=== PATIENT | female | born 1960 | race Caucasian/White ===

== ENCOUNTER 2017-05-19 01:40 | Emergency (ER) | payer MEDICAID ==
[~2017-05-19] VITALS: Ht 142.2 cm; Wt 59.0 kg
[~2017-05-19 01:40] MED LIST: ALB2T; LEVA0.31; MONT4GRA; TIOTCAP
[2017-05-19 01:54] VITALS: BP 144/105
== END 2017-05-19 04:36 | disposition left against medical advice (07) ==
LOC: ER 01:40
DX: F31.9 Bipolar disorder, unspecified (principal); Z53.21 Procedure and treatment not carried out due to patient leaving prior to being seen by health care provider

== ENCOUNTER 2017-05-23 03:46 | Emergency (ER) | payer MEDICAID ==
[~2017-05-23] VITALS: Ht 142.2 cm; Wt 56.7 kg
[2017-05-23 05:12] LABS: Urine Bilirubin Negative (Negative); Urine Blood 2+ /uL (Negative); Urine Color Yellow (Yellow); Urine Glucose Normal (Normal); Urine Ketone Negative (Negative); Urine Nitrite Negative (Negative); Urine RBC 24 /hpf (0 - 4); Urine Squamous Epithelial Cell FEW /hpf (<5); Urine Urobilinogen Normal (Negative); Urine pH 6.5 (5.0-8.0)
[2017-05-23] MEDS ORDERED: LORazepam 0.5 MG TAB ONE (05:37)
[2017-05-23 06:24] VITALS: BP 112/82
== END 2017-05-23 06:24 | disposition home or self-care (01) ==
LOC: ER 03:49
DX: F41.9 Anxiety disorder, unspecified (principal); F31.9 Bipolar disorder, unspecified; G47.00 Insomnia, unspecified; F17.210 Nicotine dependence, cigarettes, uncomplicated; M19.90 Unspecified osteoarthritis, unspecified site; J44.9 Chronic obstructive pulmonary disease, unspecified; Z90.49 Acquired absence of other specified parts of digestive tract; Z90.710 Acquired absence of both cervix and uterus
CPT/HCPCS: 80307; 81001

== ENCOUNTER 2017-06-07 05:49 | Emergency (ER) | payer MEDICAID ==
[~2017-06-07] VITALS: Ht 152.4 cm; Wt 72.6 kg
[2017-06-07 08:07] VITALS: BP 149/85
[2017-06-07] MEDS ORDERED: KETOROLAC TROMETH 60MG/2ML VIAL IM ONE (08:15)
[2017-06-07] MEDS ORDERED: diphenhdrAMINE HCL 50 MG/1 ML VL IM ONE (08:15)
== END 2017-06-07 08:30 | disposition home or self-care (01) ==
LOC: ER 05:52
DX: S16.1XXA Strain of muscle, fascia and tendon at neck level, initial encounter (principal); S40.012A Contusion of left shoulder, initial encounter; S50.12XA Contusion of left forearm, initial encounter; M19.90 Unspecified osteoarthritis, unspecified site; J44.9 Chronic obstructive pulmonary disease, unspecified; F17.210 Nicotine dependence, cigarettes, uncomplicated; Z90.49 Acquired absence of other specified parts of digestive tract; Z90.710 Acquired absence of both cervix and uterus; Z88.1 Allergy status to other antibiotic agents; Z88.8 Allergy status to other drugs, medicaments and biological substances; V03.99XA Pedestrian with other conveyance injured in collision with car, pick-up truck or van, unspecified whether traffic or nontraffic accident, initial encounter; Y93.89 Activity, other specified; Y92.89 Other specified places as the place of occurrence of the external cause; Y99.8 Other external cause status
CPT/HCPCS: 72040; 73030; 73060; 73090; 96372; 99284; J1200; J1885

== ENCOUNTER 2024-08-14 08:39 | Emergency (ER) | payer MEDICAID ==
[~2024-08-14] VITALS: Ht 137.2 cm; Wt 59.0 kg
[~2024-08-14 08:39] MED LIST changes: -ALB2T; +ALBU2TAB47; -MONT4GRA; +MONT4GRA7
[2024-08-14] MEDS: ACETAMINOPHEN 500 MG TAB or CAP PO ONE (09:15)
[2024-08-14 09:16] VITALS: BP 108/68; PULSE 94; TEMP 98
--- NOTE | 2024-08-14 09:20 | ED.PDOC ---
Steven. trauma (HPI) HPI Comments A 64 YEAR OLD FEMALE PRESENTS TO THE ED WITH COMPLAINT OF HEADACHE AND NECK PAIN STATUS POST FALL. PATIENT STATES SHE ACCIDENTALLY SLIPPED ON BLACK ICE 3 DAYS AGO CAUSING HER TO FALL BACKWARDS AND HIT THE BACK OF HER HEAD ON THE GROUND. PATIENT REPORTS SHE IS NOW EXPERIENCING A HEADACHE, NECK PAIN, AND UPPER BACK PAIN. PATIENT NOTES SHE ALSO HAS A HISTORY OF COPD AND USUALLY DOES A BREATHING TREATMENT IN THE MORNING, BUT DID NOT DO IT TODAY, AND WOULD LIKE A BREATHING TREATMENT HERE IN THE ED TODAY SHE CURRENTLY HAS MILD DIFFICULTY BREATHING. PATIENT DENIES LOC, FEVER, CHILLS, SHORTNESS OF BREATH, CHEST PAIN, ABDOMINAL PAIN, NAUSEA, VOMITING, HEADACHE, OR OTHER COMPLAINTS. NO OTHER SYMPTOMS OR MODIFYING FACTORS AT THIS TIME. PATIENT IS ALERT, ORIENTED X 4, AND HAS STEADY GAIT. Chief Complaint: Fall Injury Time Seen by MD: 08:49 Primary Care Provider: TARUNK Reviewed notes: Nurses Notes, Medications, Allergies Allergies: Coded Allergies: Haloperidol (Verified Allergy, Mild, 12/28/09) Erythromycin (Verified Allergy, Unknown, 07/09/16) Risperidone (Verified Allergy, Unknown, 07/09/16) Home Meds Active Scripts Albuterol Sulfate (Albuterol Sulfate Hfa) 108 Mcg/Act Aer, 108 MCG IN TID, #120 AER Prov:RUBINA KEEN 08/14/24 Methocarbamol (Methocarbamol) 500 Mg Tab, 500 MG PO BID, #20 TAB Prov:RUBINA KEEN 08/14/24 Methylprednisolone (Medrol Dosepak) 4 Mg Jay, 4 MG PO UD, #21 TAB UAD Prov:RUBINA KEEN 08/14/24 Reported Medications Levalbuterol Hydrochloride (Xopenex) 0.31 Mg Neb 01/01/10 Albuterol Sulfate (Ventolin) 2 Mg Tb 01/01/10 Tiotropium [place] Monohydrate (Spiriva Handihaler) Handihlr Cap, 1 daily 12/28/09 Montelukast Sodium (Singulair) 4 Mg Gra 12/28/09 Information Source: Patient Mode of Arrival: Ambulatory Severity: Moderate Timing: Days Duration: Since onset, Days Prehospital treatment: None Location: Back (UPPER BACK), Head, Neck Location of neck pain: (R) Posterior, (L) Posterior Location of laceration: None Mechanism: Blunt trauma, Fall Associated signs and symtoms: Headache Past Medical History PAST MEDICAL HISTORY: Anxiety, Arthritis, COPD, Depression, Gallstones Past Medical History (Other): CHRONIC LOWER BACK PAIN Surgical History: Appendectomy, , Hysterectomy, Tonsillectomy APPLICATIONS PROGRAMMER ANALYST History: Denies all APPLICATIONS PROGRAMMER ANALYST Hx Family History Family History: Reviewed,noncontributory to illness, No family hx of HTN Social History Smoker: Cigarettes, Less Than 1 Pack/Day Alcohol: Occasionally Drugs: Denies Drug Use Lives In: Home Constitutional: denies: chills, diaphoresis, fatigue, fever, malaise, sweats, weakness, others EENTM: denies: blurred vision, double vision, ear bleeding, ear discharge, ear drainage, ear pain, ear ringing, eye pain, eye redness, hearing loss, mouth pain, mouth swelling, nasal discharge, nose bleeding, nose congestion, nose pain, photophobia, tearing, throat pain, throat swelling, voice changes, others Respiratory: reports: wheezing, others (DIFFICULTY BREATHING); denies: cough, hemoptysis, orthopnea, SOB at rest, shortness of breath, SOB with excertion, stridor Cardiovascular: denies: chest pain, dizzy spells, diaphoresis, Dyspnea on exertion, edema, irregular heart beat, left arm pain, lightheadedness, palpitations, PND, syncope, others Gastrointestinal: denies: abdomen distended, abdominal pain, blood streaked bowels, constipated, diarrhea, dysphagia, difficulty swallowing, hematemesis, melena, nausea, poor appetite, poor fluid intake, rectal bleeding, rectal pain, vomiting, others Genitourinary: denies: abnormal vagina bleeding, burning, dyspareunia, dysuria, flank pain, frequency, hematuria, incontinence, pain, , vagina discharge, urgency, others Neurological: reports: headache; denies: dizziness, fainting, left sided numbness, left sided weakness, numbness, paresthesia, pre-existing deficit, right sided numbness, right sided weakness, seizure, speech problems, tingling, tremors, weakness, others Musculoskeletal: reports: back pain (UPPER BACK PAIN), muscle pain, neck pain; denies: gout, joint pain, joint swelling, muscle stiffness, others Integumetry: denies: bruises, change in color, change in hair/nails, dryness, laceration, lesions, lumps, rash, wounds, others Allergic/Immunocompromised: denies: Difficulty Healing, Frequent Infections, Hives, Itching, others Hematologic/Lymphatic: denies: anemia, blood clots, easy bleeding, easy bruising, swollen glands, others Endocrine: denies: excessive hunger, excessive sweating, excessive thirst, excessive urination, flushing, intolerance to cold, intolerance to heat, unexplained weight gain, unexplained weight loss, others Psychiatric: denies: anxiety, bipolar disorder, depression, hopeless, panic disorder, schizophrenia, sleepless, suicidal, others All Other Systems: Reviewed and Negative Physical Exam General Appearance: No Apparent Distress, Normal HEENT: Head (TENDERNESS BACK OF SCALP, NO BONY TENDERNESS, SWELLING AND DEFORMITY. ), Normal ENT Inspection, PERRL/EOMI, Pharynx Normal, TMs Normal Neck: Full Range of Motion, Normal Inspection, Supple, Tender Lateral (MUSCLE SPASM ON POSTERIOR NECK, NO BONY TENDERNESS, SWELLING AND DEFORMITY. ) Respiratory: Chest Non-Tender, Expiration, No Accessory Muscle Use, No Respiratory Distress, Rhonchi, Wheezing (MILD ) Cardiovascular: No Edema, No JVD, No Murmur, No Gallop, Normal Peripheral Pulses, Regular Rate/Rhythm Breast Exam: Deferred Gastrointestinal: No Organomegaly, Non Tender, No Pulsatile Mass, Normal Bowel Sounds, Soft Genitalia: Deferred Pelvic: Deferred Rectal: Deferred Extremities: No calf tenderness, Normal capillary refill, Normal inspection, Normal range of motion, Non-tender, No pedal edema Musculoskeletal : Location: Bilateral Extremity Location: Back Apperance: Tenderness (MUSCLE SPASM ON UPPER BACK, NO BONY TENDERNESS, SWELLING AND DEFORMITY. ) Neurologic: Alert, quality control tester II-XII nml as Tested, No Motor Deficits, Normal Affect, Normal Mood, No Sensory Deficits Cerebellar Function: Normal Reflexes: Normal Skin: Dry, Normal Color, Warm Peripheral Pulses: 2+ carotid (R), 2+ carotid (L) Lymphatic: No Adenopathy Was a procedure done? Was a procedure done?: No Differential Diagnosis Multiple Trauma: Closed Head Injury, Fractures, Cerebral Contusion, Contusion, Hematoma, Other (MILD COPD EXACERBATION) Neck Injury: Cervical Muscle Spasm, Cervical Sprain, Cervical Strain, Cervical Fracture X-Ray, Labs, Meds, VS Vital Signs Date Time Temp Pulse Resp B/P (MAP) Pulse Ox O2 Delivery O2 Flow Rate FiO2 08/14/24 10:03 17 96 Room Air* 0 21 08/14/24 09:16 98.0 94 16 108/68 (81) 100 98.0 08/14/24 09:16 94 16 100 Room Air 08/14/24 08:56 98.0 94 16 108/68 (81) 100 Current Medications Medications (Trade) Dose Ordered Sig/Marlin Route Start Time Stop Time Status Last Admin Albuterol (Ventolin Medneb) 2.5 mg ONCE ONCE NEB 08/14/24 09:15 08/14/24 09:18 DC 08/14/24 10:02 Ipratropium [place] (Atrovent Medneb) 0.5 mg ONCE ONCE NEB 08/14/24 09:15 08/14/24 09:18 DC 08/14/24 10:02 Methylprednisolone Sodium Succinate (Solu Medrol) 125 mg ONCE ONCE IM 08/14/24 09:15 08/14/24 09:18 DC 08/14/24 09:24 CLINICAL INFORMATION: 64 years old, Female; fall injury. TECHNIQUE: Axial imaging was obtained through the brain without contrast. Coronal and sagittal reformatted images were obtained, reviewed, and stored. Images were reviewed in brain and bone windows. All CT scans at this medical facility are performed using dose modulation techniques as appropriate to a performed exam including the following: Automated exposure control was utilized; adjustment of the MA and/or KV according to patient size; and use of iterative reconstruction technique. CTDIvol = 48.73 mGy DLP = 780.26 mGy-cm COMPARISON: None FINDINGS: There is no acute intracranial hemorrhage or extraaxial fluid collection. No mass effect or midline shift. The ventricles and sulci are within normal limits in size for age. Basal cisterns are patent. The calvarium is unremarkable. Mild mucosal thickening of the paranasal sinuses. Mastoid air cells are clear. IMPRESSION: No CT evidence of acute intracranial abnormality. ATED BY: KG GUTIÉRREZ DO DICTATED DATE/TIME: 08/14/24958 SIGNED BY: KG GUTIÉRREZ DO SIGNED DATE/TIME: 08/14/24958 CC: CLINICAL INFORMATION: 64 years old, Female; fall injury. TECHNIQUE: Axial imaging was obtained through the brain without contrast. Coronal and sagittal reformatted images were obtained, reviewed, and stored. Images were reviewed in brain and bone windows. All CT scans at this medical facility are performed using dose modulation techniques as appropriate to a performed exam including the following: Automated exposure control was utilized; adjustment of the MA and/or KV according to patient size; and use of iterative reconstruction technique. CTDIvol = 48.73 mGy DLP = 780.26 mGy-cm COMPARISON: None FINDINGS: There is no acute intracranial hemorrhage or extraaxial fluid collection. No mass effect or midline shift. The ventricles and sulci are within normal limits in size for age. Basal cisterns are patent. The calvari um is unremarkable. Mild mucosal thickening of the paranasal sinuses. Mastoid air cells are clear. IMPRESSION: No CT evidence of acute intracranial abnormality. ATED BY: KG GUTIÉRREZ DO DICTATED DATE/TIME: 08/14/24958 SIGNED BY: KG GUTIÉRREZ DO SIGNED DATE/TIME: 08/14/24958 CC: CLINICAL INFORMATION: 64 years old, Female; FALL X 2 DAYS AGO. TECHNIQUE: 4 views of the cervical spine and 2 views of the thoracic spine were obtained. COMPARISON: None FINDINGS: Cervical spine: Straightening of the normal cervical lordosis. The C6-C7 level is obscured by overlying osseous structures on the lateral view and swimmer's views. C7 is not visualized on the lateral or swimmer's views. No significant spondylolisthesis visualized. Vertebral body heights are maintained. Posterior elements appear intact. No acute fracture. Multilevel mild disc space narrowing of the cervical spine. Multilevel moderate facet hypertrophy and uncinate hypertrophy in the cervical spine. Prevertebral and paraspinal soft tissues are unremarkable. Thoracic spine: Vertebral body alignment is within normal limits. Vertebral body heights are maintained. Posterior elements appear intact. No evidence of acute fracture. Multilevel [id number] disc space narrowing with a ssociated endplate sclerosis and endplate spurring. Paraspinal soft tissues are grossly unremarkable. IMPRESSION: 1. Straightening of the normal cervical lordosis. No significant spondylolisthesis. No acute fracture visualized. 2. C7 is not visualized on the lateral or swimmer's views. 3. No evidence of acute fracture or spondylolisthesis in the thoracic spine. 4. Degenerative disc disease in the cervical and thoracic spine as described above. Multilevel facet and uncinate disease in the cervical spine. ATED BY: KG GUTIÉRREZ DO DICTATED DATE/TIME: 08/14/24 1016 SIGNED BY: KG GUTIÉRREZ DO SIGNED DATE/TIME: 08/14/24 1016 CC: X-Ray, Labs, Meds, VS Comment EXTERNAL MEDICAL RECORDS REVIEWED: [NONE] INDEPENDENT HISTORIANS: [NONE] SOCIAL DETERMINANTS OF HEALTH: [NONE] LABS ORDERED: NONE REVIEWED AND INTERPRETED RESULTS: NONE IMAGING ORDERED: CT BRAIN, XR T-SPINE, XR C-SPINE TREATMENTS ORDERED: DUONEB 3 MG INHL, SOLU-MEDROL 125MG IM AND TYLENOL 1GM PO PROCEDURES PERFORMED: NONE CRITICAL CARE TIME: NONE I HAVE DISCUSSED THE PATIENT WITH THE ATTENDING PHYSICIAN DR. PENA AND HE AGREES WITH THE PATIENT'S PLAN OF CARE AND DISPOSITION. BASED ON HISTORY OF PRESENT ILLNESS, AND PHYSICAL EXAM, PATIENT WILL BE DISCHARGED HOME. SHARED DECISION MAKING: DISCUSSED WITH PATIENT THAT THEIR WORKUP WAS NORMAL. PATIENT INSTRUCTED TO FOLLOW UP WITH PRIMARY CARE PROVIDER IN 1-2 DAYS FOR RE- EVALUATION OF SYMPTOMS. PATIENT VERBALIZES UNDERSTANDING TO RETURN TO ED FOR NEW OR WORSENING SYMPTOMS OR IF FOLLOW UP WITH PCP CANNOT BE OBTAINED. PATIENT FEELS COMFORTABLE GOING HOME AT THIS TIME. ALL QUESTIONS ADDRESSED AT TIME OF DISCHARGE. Images Reviewed?: Images reviewed and evaluated by me Time of 1ST Reevaluation: 10:23 Reevaluation 1ST: Improved Patient Education/Counseling: Diagnosis, Treatment, Need For Follow Up Family Education/Counseling: Diagnosis, Treatment, Need For Follow Up Medical Screening: No EMC Exist At This Time Departure 1 Departure Time of Disposition: 10:30 Impression: Primary Impression: Acute headache Qualified Codes: G44.319 - Acute post-traumatic headache, not intractable Additional Impressions: Cervical muscle strain Qualified Codes: S16.1XXA - Strain of muscle, fascia and tendon at neck level, initial encounter Upper back strain Qualified Codes: S29.012A - Strain of muscle and tendon of back wall of thorax, initial encounter Status post fall COPD (chronic obstructive pulmonary disease) Qualified Codes: J41.0 - Simple chronic bronchitis Disposition: HOME / SELF CARE / HOMELESS Condition: Stable Additional Instructions: FOLLOW-UP WITH PCP IN 1 TO 2 DAYS. TAKE MEDICATIONS PRESCRIBED. RETURN TO ED FOR ANY NEW OR WORSENING SYMPTOMS. e-Prescriptions Albuterol Sulfate (Albuterol Sulfate Hfa) 108 Mcg/Act Aer 108 MCG IN TID, #120 AER Prov: RUBINA KEEN 08/14/24 Methocarbamol (Methocarbamol) 500 Mg Tab 500 MG PO BID, #20 TAB Prov: RUBINA KEEN 08/14/24 Methylprednisolone (Medrol Dosepak) 4 Mg Jay 4 MG PO UD, #21 TAB UAD Prov: RUBINA KEEN 08/14/24 Discharged With: Self, Relative Critical Care Note Critical Care Time?: No Stability Stability form required: No I personally scribed for RUBINA KEEN ([email or web address]) on 08/14/24 at 09:20. Electronically submitted by Jann Saul ([employer]). I personally scribed for RUBINA KEEN ([email or web address]) on 08/14/24 at 10:03. Electronically submitted by Jann Saul ([employer]). I personally scribed for RUBINA KEEN ([email or web address]) on 08/14/24 at 10:04. Electronically submitted by Jann Saul ([employer]). I personally scribed for RUBINA KEEN ([email or web address]) on 08/14/24 at 10:13. Electronically submitted by Jann Saul ([employer]). RUBINA KEEN Aug 14, 2024 09:20
[2024-08-14] MEDS: methylPREDNISolone SOD SUCC 125 MG/2 ML VL IM ONE (09:24)
--- NOTE | 2024-08-14 10:01 | DVH ---
CLINICAL INFORMATION: 64 years old, Female; fall injury. TECHNIQUE: Axial imaging was obtained through the brain without contrast. Coronal and sagittal refor matted images were obtained, reviewed, and stored. Images were reviewed in brain and bone windows. A ll CT scans at this medical facility are performed using dose modulation techniques as appropriate to a performed exam including the following: Automated exposure control was utilized; adjustment of the MA and/or KV according to patient size; and use of iterative reconstruction technique. CTDIvol = 48.73 mGy DLP = 780.26 mGy-cm COMPARISON: None FINDINGS: There is no acute intracranial hemorrhage or extraaxial fluid collection. No mass effect o r midline shift. The ventricles and sulci are within normal limits in size for age. Basal cisterns a re patent. The calvarium is unremarkable. Mild mucosal thickening of the paranasal sinuses. Mast oid air cells are clear. IMPRESSION: No CT evidence of acute intracranial abnormality.
[2024-08-14] MEDS: ALBUTEROL SULF 2.5 MG/0.5ML(0.5%) NEB SOLN NEB ONE (10:02)
[2024-08-14] MEDS: IPRATROPIUM BROM 0.5 MG/2.5ML INH SOL NEB ONE (10:02)
[2024-08-14 10:03] VITALS: RESP 17; O2SAT 96
--- NOTE | 2024-08-14 10:19 | DVH ---
CLINICAL INFORMATION: 64 years old, Female; FALL X 2 DAYS AGO. TECHNIQUE: 4 views of the cervical spine and 2 views of the thoracic spine were obtained. COMPARISON: None FINDINGS: Cervical spine: Straightening of the normal cervical lordosis. The C6-C7 level is obscured by overlyi ng osseous structures on the lateral view and swimmer's views. C7 is not visualized on the lateral or swimmer's views. No significant spondylolisthesis visualized. Vertebral body heights are maintained. Posterior elements appear intact. No acute fracture. Multilevel mild disc space narrowing of the ce rvical spine. Multilevel moderate facet hypertrophy and uncinate hypertrophy in the cervical spine. Prevertebral and paraspinal soft tissues are unremarkable. Thoracic spine: Vertebral body alignment is within normal limits. Vertebral body heights are maintai kenneth. Posterior elements appear intact. No evidence of acute fracture. Multilevel [id number] d isc space narrowing with associated endplate sclerosis and endplate spurring. Paraspinal soft tissues are grossly unremarkable. IMPRESSION: 1. Straightening of the normal cervical lordosis. No significant spondylolisthesis. No acute fracture visualized. 2. C7 is not visualized on the lateral or swimmer's views. 3. No evidence of acute fracture or spondylolisthesis in the thoracic spine. 4. Degenerative disc disease in the cervical and thoracic spine as described above. Multilevel facet and uncinate disease in the cervical spine.
[2024-08-14] MEDS ORDERED: METH4PAK PO (10:22)
[2024-08-14] MEDS ORDERED: METH-1181 PO (10:22)
[2024-08-14] MEDS ORDERED: ALBU108A5 IN (10:22)
== END 2024-08-14 10:28 | disposition home or self-care (01) ==
LOC: ER 08:39
DX: G44.319 Acute post-traumatic headache, not intractable (principal); S16.1XXA Strain of muscle, fascia and tendon at neck level, initial encounter; S29.012A Strain of muscle and tendon of back wall of thorax, initial encounter; F17.210 Nicotine dependence, cigarettes, uncomplicated; J44.9 Chronic obstructive pulmonary disease, unspecified; M19.90 Unspecified osteoarthritis, unspecified site; F41.9 Anxiety disorder, unspecified; F32.A Depression, unspecified; Z90.49 Acquired absence of other specified parts of digestive tract; Z90.710 Acquired absence of both cervix and uterus; Z98.890 Other specified postprocedural states; Z88.1 Allergy status to other antibiotic agents; Z88.8 Allergy status to other drugs, medicaments and biological substances; W00.0XXA Fall on same level due to ice and snow, initial encounter; Y93.89 Activity, other specified; Y92.89 Other specified places as the place of occurrence of the external cause; Y99.8 Other external cause status
CPT/HCPCS: 70450; 72040; 72070; 94640; 96372; 99285; J2919

== ENCOUNTER 2024-08-17 21:36 | Emergency (ER) | payer MEDICAID ==
[~2024-08-17] VITALS: Ht 137.2 cm; Wt 59.1 kg
[~2024-08-17 21:36] MED LIST changes: +ALBU108A5 IN; +METH-1181 PO; +METH4PAK PO
[2024-08-17 22:03] VITALS: BP 110/68; PULSE 82; RESP 19; O2SAT 94
[2024-08-17] MEDS ORDERED: ALBUTEROL SULF 2.5 MG/0.5ML(0.5%) NEB SOLN NEB ONE (22:30)
[2024-08-17] MEDS ORDERED: methylPREDNISolone SOD SUCC 125 MG/2 ML VL IV ONE (22:30)
[2024-08-17] MEDS ORDERED: IPRATROPIUM BROM 0.5 MG/2.5ML INH SOL NEB ONE (22:30)
--- NOTE | 2024-08-18 02:29 | DVH ---
CHEST RADIOGRAPH Indication: sob Technique: Single frontal view of the chest was obtained COMPARISON: None FINDINGS: Lines and Tubes: None Lungs: Clear Pleura: No effusion. No pneumothorax. Cardiomediastinal contours: Unremarkable Bones: Degenerative changes are noted. IMPRESSION: 1. Clear lungs.
[2024-08-18] MEDS ORDERED: PRED20TA2 PO (03:56)
[2024-08-18] MEDS ORDERED: AZIT-43 PO (03:56)
[2024-08-18] MEDS ORDERED: ACET500T58 PO (03:56)
[2024-08-18] MEDS ORDERED: ALBUAER3 IN (03:56)
[2024-08-18] MEDS ORDERED: CEPH250C PO (20:34)
== END 2024-08-17 23:51 | disposition left against medical advice (07) ==
LOC: ER 21:36
DX: R06.02 Shortness of breath (principal); Z53.21 Procedure and treatment not carried out due to patient leaving prior to being seen by health care provider
CPT/HCPCS: 71045; 80053; 83605; 83880; 84484; 87426; 87804

== ENCOUNTER 2024-08-18 01:04 | Emergency (ER) | payer MEDICAID ==
[~2024-08-18] VITALS: Ht 137.2 cm; Wt 59.1 kg
[2024-08-18 03:49] VITALS: BP 129/65; PULSE 90; RESP 20; O2SAT 95
[2024-08-18] MEDS ORDERED: PRED20TA2 PO (03:56)
[2024-08-18] MEDS ORDERED: AZIT-43 PO (03:56)
[2024-08-18] MEDS ORDERED: ALBUAER3 IN (03:56)
[2024-08-18] MEDS ORDERED: ACET500T58 PO (03:56)
--- NOTE | 2024-08-18 03:57 | ED.PDOC ---
SOB-HPI HPI Comments 64 year old female presents to ER with complaints of cough x 2 days. Patient with past medical history significant for COPD reports that she has been experiencing productive cough with yellow phlegm, congestion and "10/10" body aches pain x2 days. Reports that she has been using her Spiriva inhaler with slight relief and states that she recently ran out of her albuterol inhaler and would like a refill of this inhaler in ER today. Patient presents to fast-track ambulatory on arrival, alert and oriented x4, with steady gait, in no distress with vitals stable. Denies fever, shortness of breath, chest pain, hemoptysis, headache, fatigue, confusion, known exposure to sick contacts or any further symptoms/complaints Chief Complaint: Cough Time Seen by MD: 01:36 Primary Care Provider: UNKNOWN Reviewed notes: Nurses Notes, Medications, Allergies Information Source: Patient Mode of Arrival: Ambulatory Past Medical History PAST MEDICAL HISTORY: Anxiety, Arthritis, COPD, Depression, Gallstones Surgical History: Appendectomy, , Hysterectomy, Tonsillectomy ARCHITECTURAL RENDERER History: Denies all ARCHITECTURAL RENDERER Hx Family History Family History: No family hx of HTN Social History Smoker: Cigarettes, Less Than 1 Pack/Day Alcohol: Occasionally Drugs: Denies Drug Use Lives In: Home Constitutional: reports: others ( STATED IN HPI) EENTM: reports: others ( STATED IN HPI) Respiratory: reports: others ( STATED IN HPI) Cardiovascular: denies: chest pain, dizzy spells, diaphoresis, Dyspnea on exertion, edema, irregular heart beat, left arm pain, lightheadedness, palpitations, PND, syncope, others Gastrointestinal: denies: abdomen distended, abdominal pain, blood streaked bowels, constipated, diarrhea, dysphagia, difficulty swallowing, hematemesis, melena, nausea, poor appetite, poor fluid intake, rectal bleeding, rectal pain, vomiting, others Genitourinary: denies: abnormal vagina bleeding, burning, dyspareunia, dysuria, flank pain, frequency, hematuria, incontinence, pain, , vagina discharge, urgency, others Neurological: denies: dizziness, fainting, headache, left sided numbness, left sided weakness, numbness, paresthesia, pre-existing deficit, right sided numbness, right sided weakness, seizure, speech problems, tingling, tremors, weakness, others Musculoskeletal: denies: back pain, gout, joint pain, joint swelling, muscle pain, muscle stiffness, neck pain, others Integumetry: denies: bruises, change in color, change in hair/nails, dryness, laceration, lesions, lumps, rash, wounds, others Allergic/Immunocompromised: denies: Difficulty Healing, Frequent Infections, Hives, Itching, others Hematologic/Lymphatic: denies: anemia, blood clots, easy bleeding, easy bruising, swollen glands, others Endocrine: denies: excessive hunger, excessive sweating, excessive thirst, excessive urination, flushing, intolerance to cold, intolerance to heat, unexplained weight gain, unexplained weight loss, others Psychiatric: denies: anxiety, bipolar disorder, depression, hopeless, panic disorder, schizophrenia, sleepless, suicidal, others Physical Exam General Appearance: No Apparent Distress, Obese HEENT: Normal ENT Inspection, PERRL/EOMI, Pharynx Normal, TMs Normal Neck: Full Range of Motion, Non-Tender, Normal Respiratory: Chest Non-Tender, Lungs Clear, No Accessory Muscle Use, No Respiratory Distress, Normal Breath Sounds Cardiovascular: No Murmur, No Gallop, Regular Rate/Rhythm Breast Exam: Deferred Gastrointestinal: NOT DONE Genitalia: Deferred Pelvic: Deferred Rectal: Deferred Extremities: Normal capillary refill, Normal range of motion Neurologic: Alert, study coordinator II-XII nml as Tested, No Motor Deficits, Normal Affect, Normal Mood, No Sensory Deficits Cerebellar Function: Normal Reflexes: Normal Skin: Dry, Normal Color, Warm Peripheral Pulses: 2+ Radial (R), 2+ Radial (L), 2+ Brachial (R), 2+ Brachial (L) Lymphatic: No Adenopathy Was a procedure done? Was a procedure done?: No Sedation Sedation?: No Differential Dx Differential Diagnosis: Pneumonia, Pulmonary Embolism, Respiratory Distress X-Ray, Labs, Meds, VS Vital Signs Date Time Temp Pulse Resp B/P (MAP) Pulse Ox O2 Delivery O2 Flow Rate FiO2 08/18/24 03:49 90 20 129/65 (86) 95 08/18/24 03:46 95 Room Air* 0 21 08/18/24 01:28 98.4 98 18 19/56 (44) 95 08/18/24 01:28 18 95 Room Air* 0 21 Current Medications Medications (Trade) Dose Ordered Sig/Marlin Route Start Time Stop Time Status Last Admin Prednisone 20 mg ONCE ONCE PO 08/18/24 04:00 08/18/24 04:01 08/18/24 03:58 PATIENT: JESSI WADSWORTH LACCT: [id number]: [id number] : 1960 LOC: ER ROOM / BED: / AGE / SEX: 64 / F ADM STATUS: [facility] ER SERVICE 21 ORDERING PHYSICIAN: JEANETH BRUNO DO PROCEDURE(s): CXRP - CHEST PORTABLE REASON: sob ORDER NUMBER(s): [id number], ACCESSION NUMBER(s): [id number] CHEST RADIOGRAPH Indication: sob Technique: Single frontal view of the chest was obtained COMPARISON: None FINDINGS: Lines and Tubes: None Lungs: Clear Pleura: No effusion. No pneumothorax. Cardiomediastinal contours: Unremarkable Bones: Degenerative changes are noted. IMPRESSION: 1. Clear lungs. ATED BY: ILAN JAIMES MD DICTATED DATE/TIME: 08/18/24226 SIGNED BY: ILNA JAIMES MD SIGNED DATE/TIME: 08/18/24226 CC: Chest x-ray reviewed Prednisone 20 mg p.o. ordered [place] 5/325 mg p.o. ordered Zofran 4 mg p.o. ordered Smoking cessation discussed and advised Patient had improvement in symptoms and in no distress prior to discharge Advised to follow up with PCP in 1-2 days Patient verbalized understanding and agreeable with current plan of care Advised to return to ER immediately if symptoms worsen Images Reviewed?: Images reviewed and evaluated by me Time of 1ST Reevaluation: 03:20 Reevaluation 1ST: N/A Time of 2ND Reevaluation: 03:50 Reevaluation 2ND: Improved Patient Education/Counseling: Diagnosis, Treatment, Prognosis, Need For Follow Up Family Education/Counseling: No Family Present Departure 1 Departure Time of Disposition: 03:52 Impression: Primary Impression: Upper respiratory infection Qualified Codes: J06.9 - Acute upper respiratory infection, unspecified Additional Impression: History of COPD Disposition: 01 HOME / SELF CARE / HOMELESS Condition: Stable e-Prescriptions Albuterol Sulfate (VENTOLIN MDI) 90 Mcg Ih 2 PUFF IN Q4HPRN, #1 INH 0 Refills Prov: TABATHA WYMAN 08/18/24 Prednisone (Prednisone) 20 Mg Tab 20 MG PO BID for 5 Days, #10 TAB 0 Refills Prov: TABATHA WYMAN 08/18/24 Acetaminophen (Acetaminophen) 500 Mg Tab 500 MG PO Q4HPRN, #30 TAB 0 Refills Prov: TABATHA WYMAN 08/18/24 Azithromycin (Azithromycin) 250 Mg Tab 250 MG PO DAILY MDD 500 for 5 Days, #6 TAB 0 Refills 2 TABLETS ORALLY ON DAY ONE, THEN 1 TABLET ORALLY DAILY FOR 4 DAYS Prov: TABATHA WYMAN 08/18/24 Discharged With: Self Critical Care Note Critical Care Time?: No Stability Stability form required: No Heart Score Heart Score: Heart Score Response (Comments) Value History N/A 0 EKG N/A 0 Age N/A 0 Risk Factors N/A 0 Troponin N/A 0 Total 0 TABATHA WYMAN Aug 18, 2024 03:56
[2024-08-18] MEDS: predniSONE 20 MG TAB PO ONE (03:58)
[2024-08-18] MEDS: HYDROcodone-ACET 5/325MG TAB PO ONE (04:10)
[2024-08-18] MEDS: ONDANSETRON ODT 4 MG TAB PO ONE (04:11)
[2024-08-18] MEDS ORDERED: CEPH250C PO (20:34)
== END 2024-08-18 04:13 | disposition home or self-care (01) ==
LOC: ER 01:04
DX: J06.9 Acute upper respiratory infection, unspecified (principal); F41.9 Anxiety disorder, unspecified; J44.9 Chronic obstructive pulmonary disease, unspecified; F17.210 Nicotine dependence, cigarettes, uncomplicated; Z90.49 Acquired absence of other specified parts of digestive tract; Z90.89 Acquired absence of other organs; Z90.710 Acquired absence of both cervix and uterus
CPT/HCPCS: 99284; J7512; Q0162

== ENCOUNTER 2024-08-18 08:07 | Emergency (ER) | payer MEDICAID ==
[~2024-08-18] VITALS: Ht 137.2 cm; Wt 59.3 kg
[~2024-08-18 08:07] MED LIST changes: +ACET500T58 PO; +ALBUAER3 IN; +AZIT-43 PO; +PRED20TA2 PO
--- NOTE | 2024-08-18 08:32 | ED.PDOC ---
History of Present Illness HPI Comments 64 y/o F, presents to the ED for CC of oral sores. Patient states, that she has been experiencing mouth, oral, and throat sores x2days. Patient relays, that she believes symptoms are due to eating food given to her by family which had a weird chemical taste. Patient was discharged from [facility] today (08/18/24) at 0400 for URI. Patient comments on returning back to [facility] due to symptoms not improving. Patient denies social history. Patient denies sore throat, nasal congestion, fever, chills, or body-aches. No other symptoms or modifying factors at this time. Time Seen by MD: 08:00 Primary Care Provider: UNKNOWN Reviewed Notes: Nurses Notes, Medications, Allergies Allergies: Coded Allergies: Haloperidol (Verified Allergy, Mild, 12/28/09) Erythromycin (Verified Allergy, Unknown, 07/09/16) Risperidone (Verified Allergy, Unknown, 07/09/16) Home Meds Active Scripts Albuterol Sulfate (VENTOLIN MDI) 90 Mcg Ih, 2 PUFF IN Q4HPRN, #1 INH 0 Refills Prov:TABATHA WYMAN 08/18/24 Prednisone (Prednisone) 20 Mg Tab, 20 MG PO BID for 5 Days, #10 TAB 0 Refills Prov:TABATHA WYMAN 08/18/24 Acetaminophen (Acetaminophen) 500 Mg Tab, 500 MG PO Q4HPRN, #30 TAB 0 Refills Prov:TABATHA WYMAN 08/18/24 Azithromycin (Azithromycin) 250 Mg Tab, 250 MG PO DAILY MDD 500 for 5 Days, #6 TAB 0 Refills 2 TABLETS ORALLY ON DAY ONE, THEN 1 TABLET ORALLY DAILY FOR 4 DAYS Prov:TABATHA WYMAN 08/18/24 Albuterol Sulfate (Albuterol Sulfate Hfa) 108 Mcg/Act Aer, 108 MCG IN TID, #120 AER Prov:RUBINA KEEN 08/14/24 Methocarbamol (Methocarbamol) 500 Mg Tab, 500 MG PO BID, #20 TAB Prov:RUBINA KEEN 08/14/24 Methylprednisolone (Medrol Dosepak) 4 Mg Jay, 4 MG PO UD, #21 TAB UAD Prov:RUBINA KEEN 08/14/24 Reported Medications Levalbuterol Hydrochloride (Xopenex) 0.31 Mg Neb 01/01/10 Albuterol Sulfate (Ventolin) 2 Mg Tb 01/01/10 Tiotropium [place] Monohydrate (Spiriva Handihaler) Handihlr Cap, 1 daily 12/28/09 Montelukast Sodium (Singulair) 4 Mg Gra 12/28/09 Information Source: Patient Mode of Arrival: Ambulatory Severity: Mild Timing: Days Duration: Since onset Prehospital treatment: None Past Medical History PAST MEDICAL HISTORY: Anxiety, Arthritis, COPD, Depression, Gallstones Surgical History: Appendectomy, , Hysterectomy, Tonsillectomy SOCIAL SERVICE DIRECTOR History: Denies all SOCIAL SERVICE DIRECTOR Hx Family History Family History: No family hx of HTN Social History Smoker: Cigarettes, Less Than 1 Pack/Day Alcohol: Occasionally Drugs: Denies Drug Use Lives In: Home EENTM: reports: throat pain, throat swelling; denies: blurred vision, double vision, ear bleeding, ear discharge, ear drainage, ear pain, ear ringing, eye pain, eye redness, hearing loss, mouth pain, mouth swelling, nasal discharge, nose bleeding, nose congestion, nose pain, photophobia, tearing, voice changes, others Respiratory: denies: cough, hemoptysis, orthopnea, SOB at rest, shortness of breath, SOB with excertion, stridor, wheezing, others Cardiovascular: denies: chest pain, dizzy spells, diaphoresis, Dyspnea on exertion, edema, irregular heart beat, left arm pain, lightheadedness, palpitations, PND, syncope, others Gastrointestinal: denies: abdomen distended, abdominal pain, blood streaked bowels, constipated, diarrhea, dysphagia, difficulty swallowing, hematemesis, melena, nausea, poor appetite, poor fluid intake, rectal bleeding, rectal pain, vomiting, others Genitourinary: denies: abnormal vagina bleeding, burning, dyspareunia, dysuria, flank pain, frequency, hematuria, incontinence, pain, , vagina discharge, urgency, others Neurological: denies: dizziness, fainting, headache, left sided numbness, left sided weakness, numbness, paresthesia, pre-existing deficit, right sided numbness, right sided weakness, seizure, speech problems, tingling, tremors, weakness, others Musculoskeletal: denies: back pain, gout, joint pain, joint swelling, muscle pain, muscle stiffness, neck pain, others Integumetry: denies: bruises, change in color, change in hair/nails, dryness, laceration, lesions, lumps, rash, wounds, others Allergic/Immunocompromised: denies: Difficulty Healing, Frequent Infections, Hives, Itching, others Hematologic/Lymphatic: denies: anemia, blood clots, easy bleeding, easy bruising, swollen glands, others Endocrine: denies: excessive hunger, excessive sweating, excessive thirst, excessive urination, flushing, intolerance to cold, intolerance to heat, unexplained weight gain, unexplained weight loss, others Psychiatric: denies: anxiety, bipolar disorder, depression, hopeless, panic disorder, schizophrenia, sleepless, suicidal, others All Other Systems: Reviewed and Negative Physical Exam General Appearance: Moderate Distress HEENT: Normal ENT Inspection, Pharynx Normal, TMs Normal Neck: Full Range of Motion, Non-Tender, Normal, Normal Inspection Respiratory: Chest Non-Tender, Lungs Clear, No Accessory Muscle Use, No Respiratory Distress, Normal Breath Sounds Cardiovascular: No Edema, No JVD, No Murmur, No Gallop, Normal Peripheral Pulses, Regular Rate/Rhythm Breast Exam: Deferred Gastrointestinal: No Organomegaly, Non Tender, No Pulsatile Mass, Normal Bowel Sounds, Soft Genitalia: Deferred Pelvic: Deferred Rectal: Deferred Extremities: No calf tenderness, Normal capillary refill, Normal inspection, Normal range of motion, Non-tender, No pedal edema Musculoskeletal : Apperance: Normal Neurologic: Alert, book mender II-XII nml as Tested, No Motor Deficits, Normal Affect, Normal Mood, No Sensory Deficits Cerebellar Function: Normal Reflexes: Normal Skin: Dry, Normal Color, Warm Peripheral Pulses: 3+ Radial (R), 3+ Radial (L) Lymphatic: No Adenopathy Was a procedure done? Was a procedure done?: No Differential Dx Considerations may include: URI, CANKER SORES, STRESS, ALLERGIC REACTION X-Ray, Labs, Meds, VS Vital Signs Date Time Temp Pulse Resp B/P (MAP) Pulse Ox O2 Delivery O2 Flow Rate FiO2 08/18/24 10:48 98.7 72 17 121/86 (98) 97 98.7 08/18/24 10:48 68 18 97 Room Air 08/18/24 09:40 69 18 95 Room Air* 0 21 08/18/24 09:40 98.0 69 18 151/64 (93) 95 98.0 08/18/24 08:23 98.9 68 17 115/44 (67) 96 Current Medications Medications (Trade) Dose Ordered Sig/Marlin Route Start Time Stop Time Status Last Admin Lidocaine HCl (Xylocaine 2% Viscous) 5 ml ONCE ONCE MT 08/18/24 08:30 08/18/24 08:31 DC 08/18/24 09:40 Patient alert. Complaining of mouth sores. Vitals stable. Answering all questions. Examination does show mild canker sores. Was given viscous lidocaine. States that she is feeling much better. Reviewed her previous visit. Explained to the patient. Was told to follow up with her primary care physician. Was told to come back if there is any problem. Time of 1ST Reevaluation: 08:30 Reevaluation 1ST: Unchanged Patient Education/Counseling: Diagnosis, Treatment Family Education/Counseling: No Family Present Departure 1 Departure Time of Disposition: 17:15 Impression: Primary Impression: Canker sores oral Disposition: 01 HOME / SELF CARE / HOMELESS Condition: Good Discharged With: Self Critical Care Note Critical Care Time?: No Stability Stability form required: No Heart Score Heart Score: Heart Score Response (Comments) Value History N/A 0 EKG N/A 0 Age N/A 0 Risk Factors N/A 0 Troponin N/A 0 Total 0 I personally scribed for HEATH WERNER MD ([email or web address]) on 08/18/24 at 08:32. Electronically submitted by Joy Mejía ([email or web address]). HEATH WERNER MD Aug 18, 2024 08:32
[2024-08-18 09:40] VITALS: PULSE 69; RESP 18; O2SAT 95
[2024-08-18] MEDS: LIDOCAINE VISCOUS 2% 15ML UD MT ONE (09:40)
[2024-08-18 10:48] VITALS: BP 121/86; PULSE 68; RESP 18; TEMP 98.7; O2SAT 97
[2024-08-18] MEDS ORDERED: CEPH250C PO (20:34)
== END 2024-08-18 10:57 | disposition home or self-care (01) ==
LOC: ER 08:07
DX: K12.0 Recurrent oral aphthae (principal); J44.9 Chronic obstructive pulmonary disease, unspecified; F17.210 Nicotine dependence, cigarettes, uncomplicated; Z88.8 Allergy status to other drugs, medicaments and biological substances; Z79.899 Other long term (current) drug therapy; Z90.49 Acquired absence of other specified parts of digestive tract; Z90.710 Acquired absence of both cervix and uterus; Z98.890 Other specified postprocedural states; Z90.89 Acquired absence of other organs

== ENCOUNTER 2024-08-18 20:00 | Emergency (ER) | payer MEDICAID ==
[~2024-08-18] VITALS: Ht 137.2 cm; Wt 59.1 kg
[2024-08-18] MEDS ORDERED: CEPH250C PO (20:34)
--- NOTE | 2024-08-18 20:43 | ED.PDOC ---
History of Present Illness HPI Comments 64 y/o F presents with puncture bite wound w/discharge and pain to left hand, today. Patient is a poor historian and reports of, suddenly, noticing said wound to the webbing in between her first and second digit on her left hand. She comments on pain "going to [her] bones" and has no recollection of nature on how she obtained said wound. Patient denies having any fever, chills, nausea, vomiting, redness, or other associated symptoms or modifiers at this time. Time Seen by MD: 20:30 Primary Care Provider: none Reviewed Notes: Nurses Notes, Medications, Allergies Allergies: Coded Allergies: Haloperidol (Verified Allergy, Mild, 12/28/09) Erythromycin (Verified Allergy, Unknown, 07/09/16) Risperidone (Verified Allergy, Unknown, 07/09/16) Home Meds Active Scripts Cephalexin (KEFLEX CAPSULE) 250 Mg Cp, 500 MG PO BID, #14 CAP Prov:DON BOLDEN MD 08/18/24 Albuterol Sulfate (VENTOLIN MDI) 90 Mcg Ih, 2 PUFF IN Q4HPRN, #1 INH 0 Refills Prov:TABATHA WYMAN 08/18/24 Prednisone (Prednisone) 20 Mg Tab, 20 MG PO BID for 5 Days, #10 TAB 0 Refills Prov:TABATHA WYMAN 08/18/24 Acetaminophen (Acetaminophen) 500 Mg Tab, 500 MG PO Q4HPRN, #30 TAB 0 Refills Prov:TABATHA WYMAN 08/18/24 Azithromycin (Azithromycin) 250 Mg Tab, 250 MG PO DAILY MDD 500 for 5 Days, #6 TAB 0 Refills 2 TABLETS ORALLY ON DAY ONE, THEN 1 TABLET ORALLY DAILY FOR 4 DAYS Prov:TABATHA WYMAN 08/18/24 Albuterol Sulfate (Albuterol Sulfate Hfa) 108 Mcg/Act Aer, 108 MCG IN TID, #120 AER Prov:RUBINA KEEN 08/14/24 Methocarbamol (Methocarbamol) 500 Mg Tab, 500 MG PO BID, #20 TAB Prov:RUBINA KEEN 08/14/24 Methylprednisolone (Medrol Dosepak) 4 Mg Jay, 4 MG PO UD, #21 TAB UAD Prov:RUBINA KEEN 08/14/24 Reported Medications Levalbuterol Hydrochloride (Xopenex) 0.31 Mg Neb 01/01/10 Albuterol Sulfate (Ventolin) 2 Mg Tb 01/01/10 Tiotropium [place] Monohydrate (Spiriva Handihaler) Handihlr Cap, 1 daily 12/28/09 Montelukast Sodium (Singulair) 4 Mg Gra 12/28/09 Information Source: Patient Severity: Moderate Timing: Hours Duration: Since onset Prehospital treatment: None Past Medical History PAST MEDICAL HISTORY: Anxiety, Arthritis, COPD, Depression, Gallstones Past Medical History (Other): chronic pain syndrome Surgical History: Appendectomy, , Hysterectomy, Tonsillectomy PATIENT FINANCIAL SERVICES COORDINATOR History: Denies all PATIENT FINANCIAL SERVICES COORDINATOR Hx Family History Family History: No family hx of HTN Social History Smoker: Cigarettes, Less Than 1 Pack/Day Alcohol: Occasionally Drugs: Denies Drug Use Lives In: Homeless Musculoskeletal: reports: others (left hand pain ) Integumetry: reports: wounds (puncture bite wound to left-hand ) All Other Systems: Reviewed and Negative (negative unless otherwise stated above or in HPI) Physical Exam General Appearance: Mild Distress, Normal HEENT: Normal ENT Inspection, Pharynx Normal, TMs Normal Neck: Full Range of Motion, Non-Tender, Normal, Normal Inspection Respiratory: Chest Non-Tender, Lungs Clear, No Accessory Muscle Use, No Respiratory Distress, Normal Breath Sounds Cardiovascular: No Edema, No JVD, No Murmur, No Gallop, Normal Peripheral Pulses, Regular Rate/Rhythm Breast Exam: Deferred Gastrointestinal: No Organomegaly, Non Tender, No Pulsatile Mass, Normal Bowel Sounds, Soft Genitalia: Deferred Pelvic: Deferred Rectal: Deferred Extremities: No calf tenderness, Normal capillary refill, Normal inspection, Normal range of motion, Non-tender, No pedal edema Musculoskeletal : Apperance: Normal Neurologic: Alert, membership director II-XII nml as Tested, No Motor Deficits, Normal Affect, Normal Mood, No Sensory Deficits Cerebellar Function: Normal Reflexes: Normal Skin: Dry, Normal Color, Warm, Other (abscess to snuff-box/webbing area of 1st and 2nd digit on left hand with erupting puss) Lymphatic: No Adenopathy Was a procedure done? Was a procedure done?: No Differential Dx Considerations may include: cellulitis, dermatitis, skin-contact exposure X-Ray, Labs, Meds, VS Vital Signs Date Time Temp Pulse Resp B/P (MAP) Pulse Ox O2 Delivery O2 Flow Rate FiO2 08/18/24 20:15 97.8 81 18 145/79 (101) 95 The patient was prescribed Keflex for insect bite Time of 1ST Reevaluation: 21:00 Reevaluation 1ST: Unchanged Patient Education/Counseling: Diagnosis, Treatment Family Education/Counseling: No Family Present Departure 1 Departure Time of Disposition: 21:27 Impression: Primary Impression: Insect bite Qualified Codes: S60.562A - Insect bite (nonvenomous) of left hand, initial encounter; W57.XXXA - Bitten or stung by nonvenomous insect and other nonvenomous arthropods, initial encounter Disposition: HOME / SELF CARE / HOMELESS Condition: Stable Written Prescriptions Reassessed patient, vital signs stable. Denies any new symptoms. Patient is able to tolerate PO and ambulate/be mobile at their baseline without concern. Risks and benefits of all medications given or prescribed, if any, discussed. All lab work, imaging and diagnostic studies were reviewed by me. The patient was counseled extensively on my clinical impression, diagnosis, expected course of the disease, and plan, including their follow-up care. Will discharge patient. Patient instructed to follow up with Primary Care Physician within 24-48 hours. Strict return precautions given for further exacerbation of symptoms or for new symptoms. The patient was given the opportunity to ask questions and all questions were answered by myself and the nursing/tech staff. Patient is in agreement with the care plan. The patient verbally expressed understanding of the discharge instructions, including the reasons to return to the Emergency Department. e-Prescriptions Cephalexin (KEFLEX CAPSULE) 250 Mg Cp 500 MG PO BID, #14 CAP Prov: DON BOLDEN MD 08/18/24 Critical Care Note Critical Care Time?: No Stability Stability form required: No Heart Score Heart Score: Heart Score Response (Comments) Value History N/A 0 EKG N/A 0 Age N/A 0 Risk Factors N/A 0 Troponin N/A 0 Total 0 I personally scribed for DON BOLDEN MD ([email or web address]) on 08/18/24 at 20:43. Electronically submitted by Ken Hoover ([email or web address]). DON BOLDEN MD Aug 18, 2024 20:43
[2024-08-19 07:50] VITALS: BP 113/77; TEMP 98.9
[2024-08-19 08:00] VITALS: PULSE 92; RESP 16; O2SAT 96
== END 2024-08-18 21:26 | disposition left against medical advice (07) ==
LOC: ER 20:00
DX: S60.562A Insect bite (nonvenomous) of left hand, initial encounter (principal); J44.9 Chronic obstructive pulmonary disease, unspecified; G89.4 Chronic pain syndrome; F17.210 Nicotine dependence, cigarettes, uncomplicated; Z90.49 Acquired absence of other specified parts of digestive tract; Z90.710 Acquired absence of both cervix and uterus; Z59.00 Homelessness unspecified; Z79.52 Long term (current) use of systemic steroids; Z88.1 Allergy status to other antibiotic agents; Z88.8 Allergy status to other drugs, medicaments and biological substances; W57.XXXA Bitten or stung by nonvenomous insect and other nonvenomous arthropods, initial encounter; Y93.89 Activity, other specified; Y92.89 Other specified places as the place of occurrence of the external cause; Y99.8 Other external cause status

== ENCOUNTER 2025-06-18 17:14 | Emergency (ER) | payer OTHER, MEDICAID ==
[~2025-06-18] VITALS: Ht 149.9 cm; Wt 63.6 kg
[~2025-06-18 17:14] MED LIST changes: +CEPH250C PO
--- NOTE | 2025-06-18 19:00 | DVH ---
CHEST RADIOGRAPH Indication: sob Technique: Single frontal view of the chest was obtained COMPARISON: XY CHEST PORTABLE on DOS: 08/18/24 FINDINGS: Lines and Tubes: None Lungs: Clear Pleura: No effusion. No pneumothorax. Cardiomediastinal contours: Unremarkable Bones: Unremarkable IMPRESSION: No acute disease.
[2025-06-18 19:28] LABS: Hematocrit 46.1 % (36.0-46.0); Hemoglobin 15.0 g/dL (12.2-16.2); Mean Corpuscular Hemoglobin 29.8 pg (28.0-32.0); Mean Corpuscular Volume 91.5 fL (80.0-100.0); Nucleated Red Blood Cells % 0.1 %
[2025-06-18 19:38] LABS: Potassium 4.0 mmol/L (3.5-5.1); Sodium 143 mmol/L (136-145)
[2025-06-18 19:39] LABS: Anion Gap 9 (5-15); Carbon Dioxide 26 mmol/L (20-31)
[2025-06-18 19:40] LABS: Calcium 9.8 mg/dL (8.7-10.4)
[2025-06-18 19:45] LABS: BUN/Creatinine Ratio 18.9 (10.0-20.0); Blood Urea Nitrogen 17 mg/dL (9-23)
[2025-06-18 19:49] LABS: Acetaminophen < 2.0 UG/ML (10.0-20.0); Chloride 108 mmol/L (98-107); Glucose 148 mg/dL (74-106); Salicylate < 3.0 mg/dL (-30)
--- NOTE | 2025-06-18 20:44 | ED.PDOC ---
Psychiatric HPI Comments This is a 64 year old female presenting to the ED with chief complaint of SI and SOB. Patient reports that she has been experiencing worsening SOB over the past 2 weeks with recent thoughts of SI for the past few days. Patient relays she is supposed to be on Risperidone, but has not been on it for some time. Patient denies any HI, AH, VH, chest pain, dizziness, cough, fever, or chills. Chief Complaint: Shortness of Breath Time Seen by MD: 20:00 Primary Care Provider: none Reviewed Notes: Nurses Notes, Medications, Allergies Information Source: Patient Mode of Arrival: EMS Severity: Able to Care for Self, Unable to Control Self Severity of Pain: None Severity of Mental Status: Moderate Severity of Symptoms: Moderate Timing: Days Duration: Since onset Prehospital treatment: None Presents with: Suicidal Ideation Stressors: None History of: Depression Past Medical History PAST MEDICAL HISTORY: Anxiety, Arthritis, COPD, Depression, Gallstones Surgical History: Appendectomy, , Hysterectomy, Tonsillectomy CVICU RN History: Denies all CVICU RN Hx Family History Family History: No family hx of HTN Social History Smoker: Cigarettes, Less Than 1 Pack/Day Alcohol: Occasionally Drugs: Denies Drug Use Lives In: Homeless Constitutional: denies: chills, diaphoresis, fatigue, fever, malaise, sweats, weakness, others EENTM: denies: blurred vision, double vision, ear bleeding, ear discharge, ear drainage, ear pain, ear ringing, eye pain, eye redness, hearing loss, mouth pain, mouth swelling, nasal discharge, nose bleeding, nose congestion, nose pain, photophobia, tearing, throat pain, throat swelling, voice changes, others Respiratory: reports: shortness of breath; denies: cough, hemoptysis, orthopnea, SOB at rest, SOB with excertion, stridor, wheezing, others Cardiovascular: denies: chest pain, dizzy spells, diaphoresis, Dyspnea on exertion, edema, irregular heart beat, left arm pain, lightheadedness, palpitations, PND, syncope, others Gastrointestinal: denies: abdomen distended, abdominal pain, blood streaked bowels, constipated, diarrhea, dysphagia, difficulty swallowing, hematemesis, melena, nausea, poor appetite, poor fluid intake, rectal bleeding, rectal pain, vomiting, others Genitourinary: denies: abnormal vagina bleeding, burning, dyspareunia, dysuria, flank pain, frequency, hematuria, incontinence, pain, , vagina discharge, urgency, others Neurological: denies: dizziness, fainting, headache, left sided numbness, left sided weakness, numbness, paresthesia, pre-existing deficit, right sided numbness, right sided weakness, seizure, speech problems, tingling, tremors, weakness, others Musculoskeletal: denies: back pain, gout, joint pain, joint swelling, muscle pain, muscle stiffness, neck pain, others Integumetry: denies: bruises, change in color, change in hair/nails, dryness, laceration, lesions, lumps, rash, wounds, others Allergic/Immunocompromised: denies: Difficulty Healing, Frequent Infections, Hives, Itching, others Hematologic/Lymphatic: denies: anemia, blood clots, easy bleeding, easy bruising, swollen glands, others Endocrine: denies: excessive hunger, excessive sweating, excessive thirst, excessive urination, flushing, intolerance to cold, intolerance to heat, unexplained weight gain, unexplained weight loss, others Psychiatric: reports: suicidal; denies: anxiety, bipolar disorder, depression, hopeless, panic disorder, schizophrenia, sleepless, others All Other Systems: Reviewed and Negative Physical Exam General Appearance: No Apparent Distress, Other (Pressured speech) HEENT: Normal ENT Inspection, Pharynx Normal, TMs Normal Neck: Full Range of Motion, Non-Tender, Normal, Normal Inspection Respiratory: Chest Non-Tender, Lungs Clear, No Accessory Muscle Use, No Respiratory Distress, Normal Breath Sounds Cardiovascular: No Edema, No JVD, No Murmur, No Gallop, Normal Peripheral Pulses, Regular Rate/Rhythm Breast Exam: Deferred Gastrointestinal: No Organomegaly, Non Tender, No Pulsatile Mass, Normal Bowel Sounds, Soft Genitalia: Deferred Pelvic: Deferred Rectal: Deferred Extremities: No calf tenderness, Normal capillary refill, Normal inspection, Normal range of motion, Non-tender, No pedal edema Musculoskeletal : Apperance: Normal Neurologic: Alert, linen aide II-XII nml as Tested, No Motor Deficits, Normal Affect, Normal Mood, No Sensory Deficits Cerebellar Function: Normal Reflexes: Normal Skin: Dry, Normal Color, Warm Lymphatic: No Adenopathy Was a procedure done? Was a procedure done?: No Psych Differential Dx Psych. Differential Dx: Depression, Suicidal X-Ray, Labs, Meds, VS Vital Signs Date Time Temp Pulse Resp B/P (MAP) Pulse Ox O2 Delivery O2 Flow Rate FiO2 06/20/25 23:30 16 Room Air* 0 06/20/25 08:00 98.4 82 18 128/60 (82) 100 98.4 06/20/25 08:00 Room Air* 0 06/19/25 23:32 98.4 84 18 134/62 (86) 100 98.4 06/19/25 19:30 Room Air* 0 06/18/25 22:50 99.0 58 18 158/97 (117) 94 99.0 06/18/25 22:50 58 18 94 Room Air* 0 06/18/25 17:20 98.0 75 22 118/83 96 98.0 Lab Test 06/18/25 19:08 Range/Units White Blood Count 8.7 4.4-10.8 10^3/uL Red Blood Count 5.04 4.0-5.20 10^6/uL Hemoglobin 15.0 12.2-16.2 g/dL Hematocrit 46.1 H 36.0-46.0 % Mean Corpuscular Volume 91.5 80.0-100.0 fL Mean Corpuscular Hemoglobin 29.8 28.0-32.0 pg Mean Corpuscular Hemoglobin Concent 32.6 32.0-36.0 g/dL Red Cell Distribution Width 14.9 H 11.8-14.3 % Platelet Count 254 140-450 10^3/uL Mean Platelet Volume 8.8 6.9-10.8 fL Neutrophils (%) (Auto) 64.8 37.0-80.0 % Lymphocytes (%) (Auto) 24.6 10.0-50.0 % Monocytes (%) (Auto) 6.0 0.0-12.0 % Eosinophils (%) (Auto) 3.9 0.0-7.0 % Basophils (%) (Auto) 0.7 0.0-2.0 % Neutrophils # (Auto) 5.6 1.6-8.6 10 ^3/uL Lymphocytes # (Auto) 2.1 0.4-5.4 10 ^3/uL Monocytes # (Auto) 0.5 0-1.3 10 ^3/uL Eosinophils # (Auto) 0.3 0-0.8 10 ^3/uL Basophils # (Auto) 0.1 0-0.2 10 ^3/uL Nucleated Red Blood Cells 0.1 % Sodium Level 143 136-145 mmol/L Potassium Level 4.0 3.5-5.1 mmol/L Chloride Level 108 H 98-107 mmol/L Carbon Dioxide Level 26 20-31 mmol/L Anion Gap 9 5-15 Blood Urea Nitrogen 17 9-23 mg/dL Creatinine 0.90 0.550-1.02 mg/dL Glomerular Filtration Rate Calc 71 >90 mL/min BUN/Creatinine Ratio 18.9 10.0-20.0 Serum Glucose 148 H 74-106 mg/dL Calcium Level 9.8 8.7-10.4 mg/dL Salicylates Level < 3.0 -30 mg/dL Acetaminophen Level < 2.0 L 10.0-20.0 UG/ML Plasma/Serum Blood Alcohol < 3.0 <10 mg/dL Current Medications Medications (Trade) Dose Ordered Sig/Marlin Route Start Time Stop Time Status Last Admin Duloxetine HCl (Cymbalta Capsule) 30 mg BID ONCE PO 06/20/25 10:00 06/20/25 10:01 DC 06/20/25 10:13 Time of 1ST Reevaluation: 20:40 Reevaluation 1ST: Unchanged Time of 2ND Reevaluation: 05:39 Reevaluation 2ND: Unchanged Patient Education/Counseling: Diagnosis, Treatment Family Education/Counseling: No Family Present Comments Overnight patient has had an uneventful stay in the emergency room. She is currently sleeping resting comfortably without any complaints. We are still waiting for an accepting psychiatric facility to accept her transfer. I was signed out the care of this patient to Dr. Waddell at change of shift at 6:00 a.m. this morning Departure 1 Departure Time of Disposition: 18:56 Impression: Primary Impression: Suicidal ideation Disposition: 02 SHORT TERM HOSPITAL Condition: Fair Discharged With: Self Critical Care Note Critical Care Time?: No Stability Stability form required: No Heart Score Heart Score: Heart Score Response (Comments) Value History N/A 0 EKG N/A 0 Age N/A 0 Risk Factors N/A 0 Troponin N/A 0 Total 0 ADDENDUM ADDENDUM ADDENDUM : I took over patient's care from Dr. Silver. At this time I have spoken Dr. Moise, psychiatrist advised that patient is not safe for discharge. Patient is voluntary at this time and we are waiting for placement. ADDENDUM ADDENDUM ADDENDUM Patient has Cymbalta 30 mg b.i.d. trazodone 50 mg q.h.s. recommended by psychiatry. She is on a voluntary hold and we are still waiting for placement. I will signed out to Dr. aZmorano regarding her care I personally scribed for LEANDRO WADDELL MD ([email or web address]) on 06/18/25 at 20:44. Electronically submitted by Addy Wilde ([email or web address]). LEANDRO WADDELL MD Jun 18, 2025 20:44 BRENNA AUSTIN MD Jun 19, 2025 18:57 JASMEET SILVER MD Jun 20, 2025 06:08
[2025-06-18 22:50] VITALS: PULSE 58; RESP 18; O2SAT 94
--- NOTE | 2025-06-19 11:22 | DVHINCON2 ---
Date of Service if different f: Jun 19, 2025 Time of Service: 10:50 Consultation (MUSTANG) Progress: Declining Labs Laboratory Tests Test 06/18/25 19:08 White Blood Count 8.7 10^3/uL (4.4-10.8) Red Blood Count 5.04 10^6/uL (4.0-5.20) Hemoglobin 15.0 g/dL (12.2-16.2) Hematocrit 46.1 % (36.0-46.0) Mean Corpuscular Volume 91.5 fL (80.0-100.0) Mean Corpuscular Hemoglobin 29.8 pg (28.0-32.0) Mean Corpuscular Hemoglobin Concent 32.6 g/dL (32.0-36.0) Red Cell Distribution Width 14.9 % (11.8-14.3) Platelet Count 254 10^3/uL (140-450) Mean Platelet Volume 8.8 fL (6.9-10.8) Neutrophils (%) (Auto) 64.8 % (37.0-80.0) Lymphocytes (%) (Auto) 24.6 % (10.0-50.0) Monocytes (%) (Auto) 6.0 % (0.0-12.0) Eosinophils (%) (Auto) 3.9 % (0.0-7.0) Basophils (%) (Auto) 0.7 % (0.0-2.0) Neutrophils # (Auto) 5.6 10 ^3/uL (1.6-8.6) Lymphocytes # (Auto) 2.1 10 ^3/uL (0.4-5.4) Monocytes # (Auto) 0.5 10 ^3/uL (0-1.3) Eosinophils # (Auto) 0.3 10 ^3/uL (0-0.8) Basophils # (Auto) 0.1 10 ^3/uL (0-0.2) Nucleated Red Blood Cells 0.1 % Sodium Level 143 mmol/L (136-145) Potassium Level 4.0 mmol/L (3.5-5.1) Chloride Level 108 mmol/L (98-107) Carbon Dioxide Level 26 mmol/L (20-31) Anion Gap 9 (5-15) Blood Urea Nitrogen 17 mg/dL (9-23) Creatinine 0.90 mg/dL (0.550-1.02) Glomerular Filtration Rate Calc 71 mL/min (>90) BUN/Creatinine Ratio 18.9 (10.0-20.0) Serum Glucose 148 mg/dL (74-106) Calcium Level 9.8 mg/dL (8.7-10.4) Salicylates Level < 3.0 mg/dL (-30) Acetaminophen Level < 2.0 UG/ML (10.0-20.0) Plasma/Serum Blood Alcohol < 3.0 mg/dL (<10) Appetite: Poor Side effects of medications: No Appearance: Stated age Psychomotor activity: Agitated Behavioral: Hostile Eye contact: Avoids Speech: Mumbled Affect: Irritable Mood: Irritable Thought processes: Linear/Goal-directed Thought content: WNL Suicidal ideations: Present Homicidal ideations: Absent Memory intact: Poor Intellect: Marginal Abstractability: [place] Concentration: Poor Attention: Poor Judgement: Poor Insight: Poor Vitals Vital Signs Date Time Temp Pulse Resp B/P (MAP) Pulse Ox O2 Delivery O2 Flow Rate FiO2 06/18/25 22:50 99.0 58 18 158/97 (117) 94 99.0 06/18/25 22:50 Room Air* 0 21 Medication adjusted: No Type: Voluntary The patient is a 64-year-old White female, homeless, with a psychiatric history significant for Major Depressive Disorder (MDD), Attention- Deficit/Hyperactivity Disorder (ADHD), and Bipolar Disorder. She has a history of psychiatric medication use including Cymbalta and Lamictal, as well as a long-standing pattern of noncompliance with medications and aftercare. She presents with severe depressive symptoms and passive suicidal ideation. The evaluation was conducted by the play writer via the telepsychiatry portal. History of Present Illness At the time of assessment, the patient appeared constricted, labile, argumentative and appear to be on the edge. She reported feeling increasingly overwhelmed by anxiety and depression, and endorsed profound feelings of helplessness, hopelessness, loneliness, and emotional exhaustion. She stated she was not feeling okay and began discussing her homelessness and persistent suicidal thoughts, at one point stating, I am just going to . She also engaged in self-harm behavior by hitting herself on the head and mentioned concerns related to her COPD. Despite attempts at psychoeducation, the patient refused to continue the interview, requiring intervention by the charge aide. She denied hallucinations or overt delusions but reported poor sleep and appetite. She repeatedly stated she had nothing to live for and expressed ongoing desire to kill herself. Psychoeducation was provided regarding the importance of medication adherence, dosing safety, and monitoring worsening symptoms. Past Psychiatric History History of MDD, ADHD, and Bipolar Disorder History of psychiatric medications Long-standing pattern of noncompliance with medications and aftercare Denies history of suicide attempts Denies history of violence Social / Developmental History Homeless Limited support system Substance Use History Denies alcohol or illicit drug use Past Medical History / Allergies No significant medical history reported Allergies: NKDA Review of Systems Unable to assess Musculoskeletal / Neurological Examination Unable to assess Mental State Examination General Appearance: Elderly White female examined at bedside. No acute dis tress. Grooming and hygiene are fair. Attitude: Alert but uncooperative Eye Contact: poor Psychomotor Activity: No agitation observed Level of Consciousness: Alert and awake Orientation: Oriented to person, place, and time Mood/Affect: Mood is anxious; affect is anxious Speech: Normal rate, volume, and tone Cognition: Fair attention span; memory grossly intact Thought Process: Mildly disorganized; evidence of thought process disruption Thought Content: No hallucinations observed; denies homicidal ideation; passive suicidal ideation present; + hopelessness; no illusions Insight/Judgment: Fair _ History of Present Illness Assessment This is a 64-year-old and homeless White female with a history of MDD, ADHD, Bipolar Disorder, and chronic noncompliance with medications, presenting with severe depressive symptoms and passive suicidal ideation, worsened by homelessness and lack of support. She denies homicidal ideation or psychotic symptoms but remains highly distressed with ongoing suicidal thoughts. She is not cooperative enough to complete a full evaluation and demonstrates emotional dysregulation and self-harm behaviors. Given her presentation, she is not psychiatrically stable for discharge and meets criteria for consideration of an involuntary hold (5150) for danger to self. Diagnosis Psychiatric Diagnosis: Bipolar Disorder Major Depressive Disorder, recurrent, severe (by history) Anxiety, unspecified Medical Diagnosis: See medical team list Plan 1.Continue to optimize medical management in coordination with the primary medical team. 2.Restart Cymbalta 30 mg PO BID and Trazodone 50 mg PO qHS. Risks/benefits discussed in detail. 3.Due to ongoing suicidal ideation, homelessness, and inability to maintain safety, recommend psychiatric inpatient hospitalization for stabilization and continuation of care. 4.Patient is not psychiatrically stable for discharge at this time. 5.Consider initiation of a 5150 hold for danger to self (DTS) or re-evaluation if patient want to leave the ED. 6.Case was discussed with the ED . JOHN PARKER MD Jun 19, 2025 11:22
[2025-06-20 23:30] VITALS: RESP 16
[2025-06-21] MEDS: KETOROLAC TROMETH 30 MG/ML 1ML VIAL IM ONE (06:47)
[2025-06-21 07:22] VITALS: PULSE 74; RESP 16; O2SAT 96
[2025-06-21 12:11] VITALS: BP 151/74; PULSE 74; RESP 16; TEMP 97.8; O2SAT 95
== END 2025-06-21 12:44 | disposition short-term general hospital (02) ==
LOC: EDBD 17:14 → ER 17:14
DX: R45.851 Suicidal ideations (principal); F17.210 Nicotine dependence, cigarettes, uncomplicated; F10.90 Alcohol use, unspecified, uncomplicated; F41.9 Anxiety disorder, unspecified; M19.90 Unspecified osteoarthritis, unspecified site; J44.9 Chronic obstructive pulmonary disease, unspecified; F32.A Depression, unspecified; Z79.899 Other long term (current) drug therapy; Z90.710 Acquired absence of both cervix and uterus; Z90.49 Acquired absence of other specified parts of digestive tract; Z59.00 Homelessness unspecified
CPT/HCPCS: 36415; 71045; 80048; 80320; 80329; 85025; 96372; 99285; J1885